=== PATIENT | female | born 1955 | race Caucasian/White ===

== ENCOUNTER 2017-01-29 09:11 | Emergency (ER) | payer BC ==
[~2017-01-29 09:11] MED LIST: ABILIFY5 MG PO; CATAPRES-T0.3 MG/24 TP; EMBEDA ER 20-01 EACH PO; ENTOCORT EC DPS3 MG PO; L-METHYLFOLATE15 MG PO; NUCYNTA75 MG PO; VESICARE5 MG PO; VITAMIN D50000 UNIT PO; ZOFRAN ODT8 MG PO
--- NOTE | 2017-02-13 15:27 | ER ---
ADMIT: 01/29/2017 RM/LOC: ER [facility] MR#: [id number] [address] [id number] ZENA[place] KRISHNAN [address] [place] [address] Emergency Room Report SEX: F AGE: 61 : 1955 DATE: 01/29/2017 ADDENDUM: A 61-year-old, white female with Crohn's disease coming in with rectal bleeding. CBC, chemistry are normal. Hemoglobin is 14.6. CT scan, nothing acute, does show indications of her Crohn's which she knows. She is recently on some different med infusions to see if that keeps it in arrest. Also, she does have Entocort at home, so she can restart that till she sees Dr. Lin tomorrow at 1100 hours for recheck. CONDITION ON DISCHARGE: Good. Juan Carmichael MD/ harrison JOB #: [id number] CC: Juan Carmichael MD, Attending Physician
== END 2017-01-29 12:15 | disposition home or self-care (01) ==
LOC: ER 09:11
DX: K50.811 Crohn's disease of both small and large intestine with rectal bleeding (principal); Z88.2 Allergy status to sulfonamides

== ENCOUNTER → 2017-01-30 | Outpatient (CLI) | payer BC | END | disposition home or self-care (01) | LOC: PTH.S 15:25 | DX: R19.7 Diarrhea, unspecified (principal) ==